=== PATIENT | male | born 1975 | race Caucasian/White ===

== ENCOUNTER 2016-11-25 20:43 | Emergency (ER) | payer BC, MEDICAID ==
--- NOTE | 2016-11-26 04:21 | ER ---
DATE SEEN: 11/25/2016 TIME SEEN: The patient was seen at 2055 hours. HISTORY OF PRESENT ILLNESS: This 41-year-old comes in with a history of complaining of upper body muscle strain. He was playing with his son yesterday and did a pull-up on a pull-up bar and as he did this, he had mild strain in his upper shoulders. No previous history of serious illness, diabetes, heart disease, high blood pressure, or hospitalizations. CURRENT MEDICATIONS: 1. Phentermine. 2. Topiramate. 3. Omeprazole. 4. Atenolol. PAST MEDICAL HISTORY: Hypertension, GERD, and headaches. PAST SURGICAL HISTORY: Lower back surgery. ALLERGIES: Bupropion. PHYSICAL EXAMINATION: VITAL SIGNS: Blood pressure 120/76, heart rate 81, respirations 18, oxygen saturation 97%, temperature is 36.9 degrees centigrade. HEENT: PERRLA intact. Pharynx without abnormality. NECK: Supple. The patient is overweight, has increased abdominal girth. ABDOMEN: Nontender. MUSCULOSKELETAL: Mild tenderness in the pectoral, deltoid, levator scapulae, rhomboids. Mild dysesthesia upper extremities and the shoulder. No hypoesthesia of fingers. 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 He feels like his fingers are slightly swollen. It is difficult for me to tell if th fingers are swollen as they look normal. It is only he who notes the swelling. They look like normal hard working fingers of a man who uses his hands a lot. The patient is 260 pounds. Deep tendon reflexes hypoactive, brachioradialis and biceps. Absent knee jerks, ankle jerks. ASSESSMENT: Strain, upper shoulder muscles. Mild brachial plexus strain induced dysesthesia. He is advised not to work tomorrow and may return to work Saturday if he does not have dysesthesia; otherwise, follow up with doctor on 11/29 and 11/30 if he still has the dysesthesia. Use ibuprofen and Tylenol for pain and discomfort. /[id number] RODNEY/ALEX PEDROZA
== END 2016-11-25 21:15 | disposition home or self-care (01) ==
LOC: FB.ED 20:43
CPT/HCPCS: 99282

== ENCOUNTER 2019-03-02 15:26 | Inpatient (IN) | payer OTHER ==
[2019-03-02] MEDS ORDERED: Sodium Chloride 0.9% 10 ML Syringe FLUSH PRN (16:24)
[2019-03-02] MEDS ORDERED: Aspirin 81 MG Tab.Chew PO ONE (16:29)
[2019-03-02] MEDS: Sodium Chloride 0.9% 1,000 ML IV SCH (16:30)
[2019-03-02] MEDS ORDERED: Nitroglycerin/D5W 25 MG/250 ML BOTTLE IV SCH (16:30)
[2019-03-02] MEDS ORDERED: Ondansetron 4 MG/2 ML SDV IVPUSH ONE (16:52)
[2019-03-02] MEDS ORDERED: Morphine 4 MG/ML Syringe IVPUSH ONE (16:53)
[2019-03-02] MEDS ORDERED: Lisinopril 20 MG Tab PO ONE (17:47)
[2019-03-02] MEDS ORDERED: Lisinopril 20 MG Tab ONE (17:55)
--- NOTE | 2019-03-02 17:59 | EDM.PDOC ---
ED HPI GENERAL MEDICAL PROBLEM - General Chief Complaint: Chest Pain Stated Complaint: CHEST PAIN, DIZZINESS, PAIN IN EXTREMITIES Time Seen by Provider: 03/02/19 16:00 Source of Information: Reports: Patient, Family History Limitations: Reports: No Limitations - History of Present Illness INITIAL COMMENTS - FREE TEXT/NARRATIVE: 43-year-old male with chronic leg pain who reports began having increasing leg pain last night (4-5 PM) and it worsened through last night to today and became associated with central chest pain that was a pressure type pain that did not radiate. He also had some feelings of shortness of breath and he was quite sleepy today. He apparently spent most of the day in bed and seemed hard to awaken at times. The pain in his legs is rated by him as a 7/10 and it is sharp and cramping. Nothing seems to make the pain better. Nothing really seems to make the pain worse. It is over both of his entire lower extremities. The chest pain which is a tightness in his chest began approximately 11 AM today. The pain is a 2/10 and is a pressure type feeling. His symptoms don't really seem to change with activity. He has had intermittent tingling in his left hand associated with this chest pain. He has been able to drink liquids okay. He has not had much of an appetite today. No fevers or chills. He has been urinating well. He does have a history of high blood pressure but has not taken his medications for months. There are no other associated signs or symptoms. There are no other modifying factors. 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 (see below) (Nothing) Bilateral legs & midsternal chest Pain Score (Numeric/FACES): 5 - Related Data Allergies Allergy/AdvReac Type Severity Reaction Status Date / Time bupropion [From Zyban] Allergy Dizziness Verified 03/02/19 15:50 Home Meds: Home Meds Omeprazole 20 mg PO DAILY 01/12/16 [History] Topiramate 25 mg PO BID 11/25/16 [History] Lisinopril 20 mg PO DAILY 03/02/19 [History] Past Medical History Cardiovascular History: Reports: Hypertension Gastrointestinal History: Reports: GERD Genitourinary History: Reports: Renal Calculus Musculoskeletal History: Reports: Arthritis, Back Pain, Chronic Neurological History: Reports: Concussion Psychiatric History: Reports: Anxiety, Depression Endocrine/Metabolic History: Reports: Obesity/BMI 30+ Dermatologic History: Reports: Psoriasis - Infectious Disease History Infectious Disease History: Reports: Chicken Pox - Past Surgical History HEENT Surgical History: Reports: Oral Surgery GI Surgical History: Reports: Cholecystectomy Neurological Surgical History: Reports: Lumbar Spine (2) Other Surgical History Comment: Lipoma removed Social & Family History - Family History Cardiac: Reports: High Cholesterol, Hypertension Respiratory: Reports: None Musculoskeletal: Reports: Arthritis Psychiatric: Reports: PTSD Hematologic: Reports: Anemia Dermatologic: Reports: Psoriasis - Tobacco Use Smoking Status *Q: Current Every Day Smoker Years of Tobacco use: 25 Packs/Tins Daily: 0.8 - Caffeine Use Caffeine Use: Reports: Soda, Tea - Alcohol Use Alcohol Use History: Yes Days Per Week of Alcohol Use: 1 Number of Drinks Per Day: 2 Total Drinks Per Week: 2 - Recreational Drug Use Recreational Drug Use: No - Living Situation & Occupation Occupation: Employed (Works as [employer]) ED ROS GENERAL - Review of Systems Review Of Systems: See Below Constitutional: Reports: No Symptoms HEENT: Reports: No Symptoms Respiratory: Reports: Shortness of Breath (Mild) Cardiovascular: Reports: Chest Pain Endocrine: Reports: Fatigue GI/Abdominal: Reports: Nausea (Mild) : Reports: No Symptoms Musculoskeletal: Reports: Leg Pain (Bilateral as above) Skin: Reports: Rash (Chronic psoriasis) Neurological: Reports: Other (Sleeping more today) Hematologic/Lymphatic: Reports: No Symptoms Immunologic: Reports: No Symptoms ED EXAM, GENERAL - Physical Exam Exam: See Below Exam Limited By: No Limitations General Appearance: Alert, Mild Distress, Obese Eye Exam: Bilateral Eye: EOMI, Normal Inspection, PERRL Ears: Normal External Exam Ear Exam: Bilateral Ear: Auricle Normal Nose: Normal Inspection, Normal Mucosa, No Blood Throat/Mouth: Normal Inspection, Normal Lips, Normal Oropharynx, Normal Voice, No Airway Compromise Head: Atraumatic, Normocephalic Neck: Normal Inspection, Supple, Non-Tender, Full Range of Motion Respiratory/Chest: No Respiratory Distress, Lungs Clear, Normal Breath Sounds, No Accessory Muscle Use, Chest Non-Tender Cardiovascular: Normal Peripheral Pulses, Regular Rate, Rhythm, No JVD Peripheral Pulses: 2+: Radial (L), Radial (R), Dorsalis Pedis (L), Dorsalis Pedis (R) GI/Abdominal: Normal Bowel Sounds, Soft, Non-Tender, No Organomegaly, No Mass, Other (Protuberant) Back Exam: Normal Inspection, Full Range of Motion Extremities: Normal Range of Motion, Non-Tender, No Pedal Edema, Normal Capillary Refill Neurological: Alert, Oriented, CN II-XII Intact, Normal Cognition, No Motor/ Sensory Deficits Psychiatric: Normal Affect Skin Exam: Warm, Dry, Rash (Psoriasis type rash all over) EKG INTERPRETATION EKG Date: 03/02/19 Time: 15:42 Rhythm: NSR Staples: LAD-Left Staples Deviation (Slight) P-Wave: Present QRS: Other (LVH) ST-T: Other (ST-T abnormalities in the lateral and inferior leads) QT: Prolonged (QTC of 463 ms) Comparison: Change From Previous EKG (Compared to EKG performed on 08/22/2015, the lateral and inferior ST changes are new. This could be due to his uncontrolled hypertension or it could be ischemic.) Course - Vital Signs Last Recorded V/S: Last Vital Signs Temp 36.4 C 03/02/19 15:34 Pulse 80 03/02/19 15:34 Resp 18 03/02/19 15:34 BP 178/125 H 03/02/19 15:34 Pulse Ox 96 03/02/19 15:34 - Orders/Labs/Meds Orders: Active Orders 24 hr Category Date Time Status EKG Documentation Completion [RC] ASDIRECTED Care 03/02/19 16:26 Active Chest 1V Frontal [CR] Stat Exams 03/02/19 16:24 Taken UA W/MICROSCOPIC [URIN] Stat Lab 03/02/19 16:24 Ordered Lisinopril [Prinivil] Med 03/03/19 17:47 Once 20 mg PO ONETIME ONE Nitroglycerin/D5W [Nitroglycerin 25 MG/D5W 250 ML] Med 03/02/19 16:30 Active 25 mg in 250 ml IV TITRATE Sodium Chloride 0.9% [Normal Saline] 1,000 ml Med 03/02/19 16:30 Active IV ASDIRECTED Sodium Chloride 0.9% [Saline Flush] Med 03/02/19 16:24 Active 10 ml FLUSH ASDIRECTED PRN Peripheral IV Insertion Adult [OM.PC] Routine Oth 03/02/19 16:24 Ordered EKG 12 Lead [EK] Routine Ther 03/02/19 16:24 Ordered Medication Orders Nitroglycerin/Dextrose (Nitroglycerin 25 Mg/D5w 250 Ml) 25 mg in 250 mls @ 6 mls/hr IV TITRATE SAVITA; Protocol Last Titration: 03/02/19 17:06 Dose: 15 mcg/min, 9 mls/hr Admin: 03/02/19 16:30 Dose: 10 mcg/min, 6 mls/hr Sodium Chloride (Normal Saline) 1,000 mls @ 75 mls/hr IV ASDIRECTED SAVITA Last Admin: 03/02/19 16:30 Dose: 75 mls/hr Lisinopril (Prinivil) 20 mg PO ONETIME ONE Stop: 03/03/19 17:48 Sodium Chloride (Saline Flush) 10 ml FLUSH ASDIRECTED PRN PRN Reason: Keep Vein Open Last Admin: 03/02/19 16:00 Dose: 10 ml Labs: Laboratory Tests 03/02/19 03/02/19 03/02/19 Range/Units 15:51 15:51 15:51 WBC 8.5 (4.5-12.0) X10-3/uL RBC 5.57 (4.30-5.75) x10(6)uL Hgb 17.5 (13.5-17.8) g/dL Hct 50.7 (30.0-51.3) % MCV 91.0 (80-96) fL MCH 31.3 (27.7-33.6) pg MCHC 34.4 (32.2-35.4) g/dL RDW 12.1 (11.5-15.5) % Plt Count 187 (125-369) X10(3)uL MPV 8.0 (7.4-10.4) fL Neut % (Auto) 63.7 (46-82) % Lymph % (Auto) 23.6 (13-37) % [place] % (Auto) 7.9 (4-12) % Eos % (Auto) 4 (1.0-5.0) % Baso % (Auto) 1 (0-2) % Neut # (Auto) 5.4 (1.6-8.3) # Lymph # (Auto) 2.0 (0.6-5.0) # [place] # (Auto) 0.7 (0.0-1.3) # Eos # (Auto) 0.3 (0.0-0.8) # Baso # (Auto) 0.1 (0.0-0.2) # PT 10.1 (8.7-11.1) INR 1.04 (0.89-1.13) APTT 23.6 L (24.4-33.2) SECONDS D-Dimer, Quantitative 0.20 (0.0-0.59) mg/LFEU Sodium 141 (135-145) mmol/L Potassium 3.6 (3.5-5.3) mmol/L Chloride 103 (100-110) mmol/L Carbon Dioxide 29 (21-32) mmol/L BUN 17 (7-18) mg/dL Creatinine 1.2 (0.70-1.30) mg/dL Est Cr Clr Drug Dosing 74.21 mL/min Estimated GFR (MDRD) > 60 (>60) BUN/Creatinine Ratio 14.2 (9-20) Glucose 129 H (80-116) mg/dL Calcium 9.0 (8.6-10.2) mg/dL Magnesium 1.8 (1.8-2.5) mg/dL Total Bilirubin 0.9 (0.1-1.3) mg/dL AST 18 (5-25) IU/L ALT 29 (12-36) U/L Alkaline Phosphatase 63 (56-112) IU/L Troponin I (<0.017-0.056) ng/mL NT-Pro-B Natriuret Pep (<=125) pg/mL Total Protein 7.1 (6.0-8.0) g/dL Albumin 3.8 (3.5-5.2) g/dL Globulin 3.3 g/dL Albumin/Globulin Ratio 1.2 03/02/19 Range/Units 15:51 WBC (4.5-12.0) X10-3/uL RBC (4.30-5.75) x10(6)uL Hgb (13.5-17.8) g/dL Hct (30.0-51.3) % MCV (80-96) fL MCH (27.7-33.6) pg MCHC (32.2-35.4) g/dL RDW (11.5-15.5) % Plt Count (125-369) X10(3)uL MPV (7.4-10.4) fL Neut % (Auto) (46-82) % Lymph % (Auto) (13-37) % [place] % (Auto) (4-12) % Eos % (Auto) (1.0-5.0) % Baso % (Auto) (0-2) % Neut # (Auto) (1.6-8.3) # Lymph # (Auto) (0.6-5.0) # [place] # (Auto) (0.0-1.3) # Eos # (Auto) (0.0-0.8) # Baso # (Auto) (0.0-0.2) # PT (8.7-11.1) INR (0.89-1.13) APTT (24.4-33.2) SECONDS D-Dimer, Quantitative (0.0-0.59) mg/LFEU Sodium (135-145) mmol/L Potassium (3.5-5.3) mmol/L Chloride (100-110) mmol/L Carbon Dioxide (21-32) mmol/L BUN (7-18) mg/dL Creatinine (0.70-1.30) mg/dL Est Cr Clr Drug Dosing mL/min Estimated GFR (MDRD) (>60) BUN/Creatinine Ratio (9-20) Glucose (80-116) mg/dL Calcium (8.6-10.2) mg/dL Magnesium (1.8-2.5) mg/dL Total Bilirubin (0.1-1.3) mg/dL AST (5-25) IU/L ALT (12-36) U/L Alkaline Phosphatase (56-112) IU/L Troponin I < 0.017 L (<0.017-0.056) ng/mL NT-Pro-B Natriuret Pep 262 H (<=125) pg/mL Total Protein (6.0-8.0) g/dL Albumin (3.5-5.2) g/dL Globulin g/dL Albumin/Globulin Ratio Meds: Medications Generic Name Dose Route Start Last Admin Trade Name Freq PRN Reason Stop Dose Admin Nitroglycerin/Dextrose 25 mg in 250 mls @ 6 mls/hr 03/02/19 16:30 03/02/19 17 :06 Nitroglycerin 25 Mg/D5w 250 Ml IV 15 mcg/min TITRATE SAVITA 9 mls/hr Titration Protocol 10 MCG/MIN Sodium Chloride 1,000 mls @ 75 mls/hr 03/02/19 16:30 03/02/19 16:30 Normal Saline IV 75 mls/hr ASDIRECTED SAVITA Administration Lisinopril 20 mg 03/03/19 17:47 Prinivil PO 03/03/19 17:48 ONETIME ONE Sodium Chloride 10 ml 03/02/19 16:24 03/02/19 16:00 Saline Flush FLUSH 10 ml ASDIRECTED PRN Administration Keep Vein Open Discontinued Medications Generic Name Dose Route Start Last Admin Trade Name Freq PRN Reason Stop Dose Admin Aspirin 324 mg 03/02/19 16:29 03/02/19 15:58 Aspirin PO 03/02/19 16:30 324 mg ONETIME ONE Administration Morphine Sulfate 4 mg 03/02/19 16:53 03/02/19 17:04 Morphine IVPUSH 03/02/19 16:54 4 mg ONETIME ONE Administration Morphine Sulfate Confirm 03/02/19 16:56 03/02/19 17:05 Morphine Administered 03/02/19 16:57 Not Given Dose 4 mg .ROUTE .STK-MED ONE Ondansetron HCl 4 mg 03/02/19 16:52 03/02/19 17:02 Zofran IVPUSH 03/02/19 16:53 4 mg ONETIME ONE Administration - Radiology Interpretation Free Text/Narrative:: Portable chest x-ray shows no acute disease. - Re-Assessments/Exams Free Text/Narrative Re-Assessment/Exam: 03/02/19 17:10: IV nitroglycerin drip has been started and his blood pressure is coming down. Chest pain has resolved and his leg pain is resolved as well with this nitroglycerin drip and control of his blood pressure. In addition he developed a headache and that was controlled with morphine IV. His initial troponin was normal. His chemistries, BUN/creatinine and hemoglobin are all normal. His d-dimer was normal as well. Chest x-ray showed no evidence of failure. The patient has hypertensive urgency which has responded nicely to the nitroglycerin drip. I will be giving the patient a dose of his blood pressure medicine that he was supposed to be taking (lisinopril 20 mg). And he will be admitted to the intensive care unit for control of his blood pressure, careful monitoring and serial troponins. I discussed this with the patient and with his significant other and they are in agreement with the plans for admission. Departure - Departure Time of Disposition: 17:50 Disposition: Admitted As Inpatient 66 Condition: Fair (Guarded) Clinical Impression: Hypertensive urgency Chest pain Qualifiers: Chest pain type: unspecified Qualified Code(s): R07.9 - Chest pain, unspecified Referrals: Dell Spivey MD [Primary Care Provider] - - My Orders Last 24 Hours: My Active Orders 03/02/19 16:24 Chest 1V Frontal [CR] Stat UA W/MICROSCOPIC [URIN] Stat Sodium Chloride 0.9% [Saline Flush] 10 ml FLUSH ASDIRECTED PRN Peripheral IV Insertion Adult [OM.PC] Routine EKG 12 Lead [EK] Routine 03/02/19 16:26 EKG Documentation Completion [RC] ASDIRECTED 03/02/19 16:30 Nitroglycerin/D5W [Nitroglycerin 25 MG/D5W 250 ML] 25 mg in 250 ml IV TITRATE Sodium Chloride 0.9% [Normal Saline] 1,000 ml IV ASDIRECTED 03/03/19 17:47 Lisinopril [Prinivil] 20 mg PO ONETIME ONE - Assessment/Plan Last 24 Hours: My Active Orders 03/02/19 16:24 Chest 1V Frontal [CR] Stat UA W/MICROSCOPIC [URIN] Stat Sodium Chloride 0.9% [Saline Flush] 10 ml FLUSH ASDIRECTED PRN Peripheral IV Insertion Adult [OM.PC] Routine EKG 12 Lead [EK] Routine 03/02/19 16:26 EKG Documentation Completion [RC] ASDIRECTED 03/02/19 16:30 Nitroglycerin/D5W [Nitroglycerin 25 MG/D5W 250 ML] 25 mg in 250 ml IV TITRATE Sodium Chloride 0.9% [Normal Saline] 1,000 ml IV ASDIRECTED 03/03/19 17:47 Lisinopril [Prinivil] 20 mg PO ONETIME ONE
[2019-03-02] MEDS ORDERED: Acetaminophen 325 MG Tab PO PRN (18:24)
[2019-03-02] MEDS ORDERED: Ondansetron 4 MG/2 ML SDV IVPUSH PRN (18:29)
[2019-03-02] MEDS ORDERED: Morphine 2 MG/ML Syringe IVPUSH PRN (18:29)
[2019-03-03] MEDS: Sodium Chloride 0.9% 1,000 ML IV SCH (05:40)
--- NOTE | 2019-03-03 07:46 | PCM.HP ---
H&P History of Present Illness - General Date of Service: 03/03/19 Admit Problem/Dx: Admission Diagnosis/Problem Admission Diagnosis/Problem Hypertensive urgency Source of Information: Patient History Limitations: Reports: No Limitations - History of Present Illness Initial Comments - Free Text/Narative: This is a 43-year-old male patient yesterday started having some leg pain. Later he started having some chest pain did not radiate anywhere had some tingling in his left hand. He wasn't feeling well so he came to the ER. His blood pressure was very high. So was admitted on nitroglycerin drip to keep his blood pressure down. Patient states he's been on lisinopril for his blood pressure but hasn't been taking for several months. He said when he got over here all the symptoms went away. He has no history of coronary artery disease or family history. He has history of smoking, hypertension. He says cholesterol and diabetes are negative. Says he had a stress test about 3 years ago that was negative. Right now is asymptomatic. Bilateral legs & midsternal chest Pain Score (Numeric/FACES): 5 Headache Pain Score (Numeric/FACES): 0 - Related Data Allergies/Adverse Reactions: Allergies Allergy/AdvReac Type Severity Reaction Status Date / Time bupropion [From Zyban] Allergy Dizziness Verified 03/02/19 15:50 Home Medications: Home Meds Omeprazole 20 mg PO DAILY 01/12/16 [History] Topiramate 25 mg PO BID 11/25/16 [History] Lisinopril 20 mg PO DAILY 03/02/19 [History] Past Medical History HEENT History: Reports: Other (See Below) Other HEENT History: Sinus irritation. Cardiovascular History: Reports: Hypertension Gastrointestinal History: Reports: GERD Genitourinary History: Reports: Renal Calculus Musculoskeletal History: Reports: Arthritis, Back Pain, Chronic Neurological History: Reports: Concussion Psychiatric History: Reports: Anxiety, Depression Endocrine/Metabolic History: Reports: Obesity/BMI 30+ Dermatologic History: Reports: Psoriasis - Infectious Disease History Infectious Disease History: Reports: Chicken Pox - Past Surgical History HEENT Surgical History: Reports: Oral Surgery GI Surgical History: Reports: Cholecystectomy Neurological Surgical History: Reports: Lumbar Spine (2) Other Surgical History Comment: Lipoma removed Social & Family History - Family History Family Medical History: Noncontributory Cardiac: Reports: High Cholesterol, Hypertension Respiratory: Reports: None Musculoskeletal: Reports: Arthritis Psychiatric: Reports: PTSD Hematologic: Reports: Anemia Dermatologic: Reports: Psoriasis - Tobacco Use Smoking Status *Q: Current Every Day Smoker Years of Tobacco use: 25 Packs/Tins Daily: 0.8 - Caffeine Use Caffeine Use: Reports: Soda, Tea - Alcohol Use Days Per Week of Alcohol Use: 1 Number of Drinks Per Day: 2 Total Drinks Per Week: 2 - Recreational Drug Use Recreational Drug Use: No - Living Situation & Occupation Occupation: Employed (Works as [employer]) H&P Review of Systems - Review of Systems: Review Of Systems: See Below General: Reports: No Symptoms HEENT: Reports: No Symptoms Pulmonary: Denies: Shortness of Breath, Cough, Sputum Cardiovascular: Reports: Chest Pain Gastrointestinal: Reports: No Symptoms Genitourinary: Reports: No Symptoms Musculoskeletal: Reports: Other (Bilateral leg pain) Skin: Reports: No Symptoms Psychiatric: Reports: No Symptoms Neurological: Reports: No Symptoms Hematologic/Lymphatic: Reports: No Symptoms Immunologic: Reports: No Symptoms Exam - Exam Exam: See Below - Vital Signs Vital Signs: Last Vital Signs Temp 97.6 F 03/03/19 04:55 Pulse 76 03/03/19 05:47 Resp 18 03/03/19 05:47 BP 120/77 03/03/19 05:47 Pulse Ox 96 03/03/19 05:47 Weight: 265 lb 11.2 oz - Exam General: Alert, Oriented, Cooperative HEENT: PERRLA, Hearing Intact, Posterior Pharynx Clear, Pupils Reactive Neck: Supple, Trachea Midline. No: Lymphadenopathy Lungs: Clear to Auscultation, Normal Respiratory Effort Cardiovascular: Regular Rate, Regular Rhythm. No: Normal S1, Normal S2, Tachycardia, Systolic Murmur GI/Abdominal Exam: Normal Bowel Sounds, Soft, Non-Tender, No Organomegaly, No Distention, No Abnormal Bruit Back Exam: Normal Inspection, Full Range of Motion Extremities: Normal Inspection, Non-Tender, No Pedal Edema Skin: Warm, Dry, Intact Neurological: Normal Gait, Normal Speech Neuro Extensive - Mental Status: Alert, Oriented x3, Normal Mood/Affect, Normal Cognition, Memory Intact Neuro Extensive - Motor, Sensory, Reflexes: Normal Gait Psychiatric: Alert, Normal Affect, Normal Mood - Patient Data Lab Results Last 24 hrs: Laboratory Results - last 24 hr 03/02/19 03/02/19 03/02/19 Range/Units 15:51 15:51 15:51 WBC 8.5 (4.5-12.0) X10-3/uL RBC 5.57 (4.30-5.75) x10(6)uL Hgb 17.5 (13.5-17.8) g/dL Hct 50.7 (30.0-51.3) % MCV 91.0 (80-96) fL MCH 31.3 (27.7-33.6) pg MCHC 34.4 (32.2-35.4) g/dL RDW 12.1 (11.5-15.5) % Plt Count 187 (125-369) X10(3)uL MPV 8.0 (7.4-10.4) fL Neut % (Auto) 63.7 (46-82) % Lymph % (Auto) 23.6 (13-37) % [place] % (Auto) 7.9 (4-12) % Eos % (Auto) 4 (1.0-5.0) % Baso % (Auto) 1 (0-2) % Neut # (Auto) 5.4 (1.6-8.3) # Lymph # (Auto) 2.0 (0.6-5.0) # [place] # (Auto) 0.7 (0.0-1.3) # Eos # (Auto) 0.3 (0.0-0.8) # Baso # (Auto) 0.1 (0.0-0.2) # PT 10.1 (8.7-11.1) INR 1.04 (0.89-1.13) APTT 23.6 L (24.4-33.2) SECONDS D-Dimer, Quantitative 0.20 (0.0-0.59) mg/LFEU Sodium 141 (135-145) mmol/L Potassium 3.6 (3.5-5.3) mmol/L Chloride 103 (100-110) mmol/L Carbon Dioxide 29 (21-32) mmol/L BUN 17 (7-18) mg/dL Creatinine 1.2 (0.70-1.30) mg/dL Est Cr Clr Drug Dosing 74.21 mL/min Estimated GFR (MDRD) > 60 (>60) BUN/Creatinine Ratio 14.2 (9-20) Glucose 129 H (80-116) mg/dL Calcium 9.0 (8.6-10.2) mg/dL Magnesium 1.8 (1.8-2.5) mg/dL Total Bilirubin 0.9 (0.1-1.3) mg/dL AST 18 (5-25) IU/L ALT 29 (12-36) U/L Alkaline Phosphatase 63 (56-112) IU/L Troponin I (<0.017-0.056) ng/mL NT-Pro-B Natriuret Pep (<=125) pg/mL Total Protein 7.1 (6.0-8.0) g/dL Albumin 3.8 (3.5-5.2) g/dL Globulin 3.3 g/dL Albumin/Globulin Ratio 1.2 Urine Color (YELLOW) Urine Appearance (CLEAR) Urine pH (5.0-6.5) Ur Specific [place] (1.010-1.025) Urine Protein (NEGATIVE) mg/dL Urine Glucose (UA) (NORMAL) mg/dL Urine Ketones (NEGATIVE) mg/dL Urine Occult Blood (NEGATIVE) Urine Nitrite (NEGATIVE) Urine Bilirubin (NEGATIVE) Urine Urobilinogen (NEGATIVE) mg/dL Ur Leukocyte Esterase (NEGATIVE) Urine RBC (0-5) Urine WBC (0-5) Ur Squamous Epith Cells (NS,R,O) Urine Bacteria (NS) 03/02/19 03/02/19 03/02/19 Range/Units 15:51 20:00 23:00 WBC (4.5-12.0) X10-3/uL RBC (4.30-5.75) x10(6)uL Hgb (13.5-17.8) g/dL Hct (30.0-51.3) % MCV (80-96) fL MCH (27.7-33.6) pg MCHC (32.2-35.4) g/dL RDW (11.5-15.5) % Plt Count (125-369) X10(3)uL MPV (7.4-10.4) fL Neut % (Auto) (46-82) % Lymph % (Auto) (13-37) % [place] % (Auto) (4-12) % Eos % (Auto) (1.0-5.0) % Baso % (Auto) (0-2) % Neut # (Auto) (1.6-8.3) # Lymph # (Auto) (0.6-5.0) # [place] # (Auto) (0.0-1.3) # Eos # (Auto) (0.0-0.8) # Baso # (Auto) (0.0-0.2) # PT (8.7-11.1) INR (0.89-1.13) APTT (24.4-33.2) SECONDS D-Dimer, Quantitative (0.0-0.59) mg/LFEU Sodium (135-145) mmol/L Potassium (3.5-5.3) mmol/L Chloride (100-110) mmol/L Carbon Dioxide (21-32) mmol/L BUN (7-18) mg/dL Creatinine (0.70-1.30) mg/dL Est Cr Clr Drug Dosing mL/min Estimated GFR (MDRD) (>60) BUN/Creatinine Ratio (9-20) Glucose (80-116) mg/dL Calcium (8.6-10.2) mg/dL Magnesium (1.8-2.5) mg/dL Total Bilirubin (0.1-1.3) mg/dL AST (5-25) IU/L ALT (12-36) U/L Alkaline Phosphatase (56-112) IU/L Troponin I < 0.017 L < 0.017 L (<0.017-0.056) ng/mL NT-Pro-B Natriuret Pep 262 H (<=125) pg/mL Total Protein (6.0-8.0) g/dL Albumin (3.5-5.2) g/dL Globulin g/dL Albumin/Globulin Ratio Urine Color Yellow (YELLOW) Urine Appearance Clear (CLEAR) Urine pH 5.0 (5.0-6.5) Ur Specific [place] 1.025 (1.010-1.025) Urine Protein Negative (NEGATIVE) mg/dL Urine Glucose (UA) Normal (NORMAL) mg/dL Urine Ketones Negative (NEGATIVE) mg/dL Urine Occult Blood Moderate H (NEGATIVE) Urine Nitrite Negative (NEGATIVE) Urine Bilirubin Small H (NEGATIVE) Urine Urobilinogen Normal (NEGATIVE) mg/dL Ur Leukocyte Esterase Negative (NEGATIVE) Urine RBC 0-5 (0-5) Urine WBC 0-5 (0-5) Ur Squamous Epith Cells Few H (NS,R,O) Urine Bacteria Few H (NS) 03/03/19 03/03/19 03/03/19 Range/Units 06:15 06:15 06:15 WBC 9.8 (4.5-12.0) X10-3/uL RBC 5.17 (4.30-5.75) x10(6)uL Hgb 16.0 (13.5-17.8) g/dL Hct 47.2 (30.0-51.3) % MCV 91.3 (80-96) fL MCH 31.0 (27.7-33.6) pg MCHC 33.9 (32.2-35.4) g/dL RDW 12.3 (11.5-15.5) % Plt Count 184 (125-369) X10(3)uL MPV 7.6 (7.4-10.4) fL Neut % (Auto) 63.2 (46-82) % Lymph % (Auto) 25.1 (13-37) % [place] % (Auto) 7.1 (4-12) % Eos % (Auto) 4 (1.0-5.0) % Baso % (Auto) 1 (0-2) % Neut # (Auto) 6.1 (1.6-8.3) # Lymph # (Auto) 2.5 (0.6-5.0) # [place] # (Auto) 0.7 (0.0-1.3) # Eos # (Auto) 0.4 (0.0-0.8) # Baso # (Auto) 0.1 (0.0-0.2) # PT (8.7-11.1) INR (0.89-1.13) APTT (24.4-33.2) SECONDS D-Dimer, Quantitative (0.0-0.59) mg/LFEU Sodium 142 (135-145) mmol/L Potassium 3.6 (3.5-5.3) mmol/L Chloride 105 (100-110) mmol/L Carbon Dioxide 29 (21-32) mmol/L BUN 20 H (7-18) mg/dL Creatinine 1.2 (0.70-1.30) mg/dL Est Cr Clr Drug Dosing 74.21 mL/min Estimated GFR (MDRD) > 60 (>60) BUN/Creatinine Ratio 16.7 (9-20) Glucose 114 (80-116) mg/dL Calcium 8.4 L (8.6-10.2) mg/dL Magnesium (1.8-2.5) mg/dL Total Bilirubin (0.1-1.3) mg/dL AST (5-25) IU/L ALT (12-36) U/L Alkaline Phosphatase (56-112) IU/L Troponin I < 0.017 L (<0.017-0.056) ng/mL NT-Pro-B Natriuret Pep (<=125) pg/mL Total Protein (6.0-8.0) g/dL Albumin (3.5-5.2) g/dL Globulin g/dL Albumin/Globulin Ratio Urine Color (YELLOW) Urine Appearance (CLEAR) Urine pH (5.0-6.5) Ur Specific [place] (1.010-1.025) Urine Protein (NEGATIVE) mg/dL Urine Glucose (UA) (NORMAL) mg/dL Urine Ketones (NEGATIVE) mg/dL Urine Occult Blood (NEGATIVE) Urine Nitrite (NEGATIVE) Urine Bilirubin (NEGATIVE) Urine Urobilinogen (NEGATIVE) mg/dL Ur Leukocyte Esterase (NEGATIVE) Urine RBC (0-5) Urine WBC (0-5) Ur Squamous Epith Cells (NS,R,O) Urine Bacteria (NS) Result Diagrams: 03/03/19 06:15 03/03/19 06:15 - Problem List (1) Chest pain SNOMED Code(s): 17890532 ICD Code: R07.9 - CHEST PAIN, UNSPECIFIED Status: Acute Current Visit: Yes Qualifiers: Chest pain type: unspecified Qualified Code(s): R07.9 - Chest pain, unspecified (2) Hypertensive urgency SNOMED Code(s): 301666319 ICD Code: I16.0 - HYPERTENSIVE URGENCY Status: Acute Current Visit: Yes Problem List Initiated/Reviewed/Updated: Yes Orders Last 24hrs: Active Orders 24 hr Category Date Time Status Admission Status [Patient Status] [ADT] Routine ADT 03/02/19 18:15 Active Antiembolic Devices [RC] .Routine Care 03/02/19 18:24 Active Communication Order [RC] .Nitro Drip Care 03/02/19 18:33 Active EKG Documentation Completion [RC] .03/03@ Care 03/02/19 16:26 Active Height and Weight [RC] 06 Care 03/02/19 18:24 Active Intake and Output [RC] 06,14,22 Care 03/02/19 18:25 Active Up With Assistance [RC] ASDIRECTED Care 03/02/19 18:24 Active VTE/DVT Education [RC] Click to Edit Care 03/02/19 18:24 Active Vital Signs [RC] Q2H Care 03/02/19 18:24 Active Heart Healthy Diet [DIET] Diet 03/02/19 Dinner Active Chest 1V Frontal [CR] Stat Exams 03/02/19 16:24 Taken Acetaminophen [Tylenol] Med 03/02/19 18:24 Active 650 mg PO Q4H PRN Aspirin Med 03/03/19 09:00 Active 162 mg PO DAILY Lisinopril [Prinivil] Med 03/03/19 09:00 Active 20 mg PO DAILY Morphine Med 03/02/19 18:29 Active 2 mg IVPUSH Q1H PRN Nitroglycerin/D5W [Nitroglycerin 25 MG/D5W 250 ML] Med 03/02/19 16:30 Active 25 mg in 250 ml IV TITRATE Ondansetron [Zofran] Med 03/02/19 18:29 Active 4 mg IVPUSH Q6H PRN Sodium Chloride 0.9% [Normal Saline] 1,000 ml Med 03/02/19 16:30 Active IV ASDIRECTED Sodium Chloride 0.9% [Saline Flush] Med 03/02/19 16:24 Active 10 ml FLUSH ASDIRECTED PRN DVT/VTE Prophylaxis Reflex [OM.PC] Per Unit Routine Oth 03/02/19 18:24 Ordered Peripheral IV Insertion Adult [OM.PC] Routine Oth 03/02/19 16:24 Ordered Resuscitation Status Routine Resus Stat 03/02/19 18:24 Ordered EKG 12 Lead [EK] Routine Ther 03/02/19 16:24 Ordered EKG 12 Lead [EK] Routine Ther 03/03/19 07:00 Ordered Medication Orders Acetaminophen (Tylenol) 650 mg PO Q4H PRN PRN Reason: analgesia/fever/pain Last Admin: 03/02/19 20:22 Dose: 650 mg Aspirin (Aspirin) 162 mg PO DAILY COUNTS INCLUDE 234 BEDS AT THE [facility] Nitroglycerin/Dextrose (Nitroglycerin 25 Mg/D5w 250 Ml) 25 mg in 250 mls @ 6 mls/hr IV TITRATE SAVITA; Protocol Last Titration: 03/02/19 22:00 Dose: 0 mcg/min, 0 mls/hr Titration: 03/02/19 21:20 Dose: 5 mcg/min, 3 mls/hr Titration: 03/02/19 21:05 Dose: 10 mcg/min, 6 mls/hr Titration: 03/02/19 20:39 Dose: 15 mcg/min, 9 mls/hr Titration: 03/02/19 18:55 Dose: 20 mcg/min, 12 mls/hr Titration: 03/02/19 18:40 Dose: 15 mcg/min, 9 mls/hr Titration: 03/02/19 17:40 Dose: 20 mcg/min, 12 mls/hr Titration: 03/02/19 17:06 Dose: 15 mcg/min, 9 mls/hr Admin: 03/02/19 16:30 Dose: 10 mcg/min, 6 mls/hr Sodium Chloride (Normal Saline) 1,000 mls @ 75 mls/hr IV ASDIRECTED SAVITA Last Admin: 03/03/19 05:40 Dose: 75 mls/hr Infusion: 03/03/19 05:40 Dose: 75 mls/hr Admin: 03/02/19 16:30 Dose: 75 mls/hr Lisinopril (Prinivil) 20 mg PO DAILY COUNTS INCLUDE 234 BEDS AT THE [facility] Morphine Sulfate (Morphine) 2 mg IVPUSH Q1H PRN PRN Reason: Moderate to severe pain Ondansetron HCl (Zofran) 4 mg IVPUSH Q6H PRN PRN Reason: Nausea/Vomiting Sodium Chloride (Saline Flush) 10 ml FLUSH ASDIRECTED PRN PRN Reason: Keep Vein Open Last Admin: 03/02/19 16:00 Dose: 10 ml Assessment/Plan Comment:: 1. Admit to the ICU on a nitro drip. 2. Restart fosinopril 20 mg daily normally takes at home. 3. Cardiac diet. 4. Up ad temo. 5. Repeat labs, troponin and EKG in a.m. 6. Full code 7. VTE of laxatives not address last night. It will not be started because the patients will be discharge.
--- NOTE | 2019-03-03 07:53 | PCM.DCSUM1 ---
Discharge Summary - Hospital Course Free Text/Narrative:: Hospital course-patient was admitted to the ICU. First EKG and troponin did not show any signs of heart damage. He was put on a nitroglycerin drip and his blood pressure came down nicely. Started as lisinopril 20 mg a day. They were able to slowly wean off the nitroglycerin drip and his blood pressure remained normal. The next morning he had another troponin and EKG that showed no elevated troponin and EKG showed some LVH with no significant ST abnormalities. Overnight the patient had apneic spells and his oxygen dropped 80%. He told the nurses then me that his 's been trying to get him to do a sleep study because she thinks he most likely has sleep apnea. He had one set up at the [facility] has not done it. Patient has not been taken any of his pills. Tomorrow for a weight loss and the lisinopril for blood pressure. Patient is medically stable this morning. So we'll discharge to home. We'll have [facility] to oxygen desaturation study for nocturnal O2. Set up a stress test in the clinic even he had one 3 years ago. Set up a sleep study to rule out sleep apnea. And continue his lisinopril 20 mg a day. Brief History: This is a 43-year-old male patient yesterday started having some leg pain. Later he started having some chest pain did not radiate anywhere had some tingling in his left hand. He wasn't feeling well so he came to the ER. His blood pressure was very high. So was admitted on nitroglycerin drip to keep his blood pressure down. Patient states he's been on lisinopril for his blood pressure but hasn't been taking for several months. He said when he got over here all the symptoms went away. He has no history of coronary artery disease or family history. He has history of smoking, hypertension. He says cholesterol and diabetes are negative. Says he had a stress test about 3 years ago that was negative. Right now is asymptomatic. Diagnosis: Stroke: No - Discharge Data Discharge Date: 03/03/19 Discharge Disposition: Home, Self-Care 01 Condition: Good - Discharge Diagnosis/Problem(s) (1) Chest pain SNOMED Code(s): 07367598 ICD Code: R07.9 - CHEST PAIN, UNSPECIFIED Status: Acute Current Visit: Yes Qualifiers: Chest pain type: unspecified Qualified Code(s): R07.9 - Chest pain, unspecified (2) Hypertensive urgency SNOMED Code(s): 168010051 ICD Code: I16.0 - HYPERTENSIVE URGENCY Status: Acute Current Visit: Yes (3) Sleep apnea SNOMED Code(s): 04627691 ICD Code: G47.30 - SLEEP APNEA, UNSPECIFIED Status: Acute Current Visit: Yes (4) Nocturnal hypoxia SNOMED Code(s): 015957453 ICD Code: G47.34 - IDIO SLEEP RELATED NONOBSTRUCTIVE ALVEOLAR HYPOVENTILATION Status: Acute Current Visit: Yes - Patient Instructions Diet: Heart Healthy Diet Activity: As Tolerated Driving: May Drive Today Showering/Bathing: May Shower Other/Special Instructions: 1. Recheck with Dr. Chandler in 1 week. 2. Set up stress test at [facility]. 3. Set up sleep study to rule in or out sleep apnea. 4. [facility] to do desaturation studies for nocturnal O2. - Discharge Plan Home Medications: Home Meds Lisinopril 20 mg PO DAILY 03/02/19 [History] Aspirin 162 mg PO DAILY tab.chew 03/03/19 [Rx] Lisinopril [Prinivil] 20 mg PO DAILY tablet 03/03/19 [Rx] Patient Handouts: Restless Legs Syndrome, Venous Thromboembolism Prevention, Hypertension Forms: ED Department Discharge Referrals: Dell Spivey MD [Primary Care Provider] - - Discharge Summary/Plan Comment DC Time >30 min.: No - Patient Data Vitals - Most Recent: Last Vital Signs Temp 97.6 F 03/03/19 04:55 Pulse 76 03/03/19 05:47 Resp 18 03/03/19 05:47 BP 120/77 03/03/19 05:47 Pulse Ox 96 03/03/19 05:47 Weight - Most Recent: 265 lb 11.2 oz I&O - Last 24 hours: Intake & Output 03/02/19 03/03/19 03/03/19 22:59 06:59 14:59 Intake Total 793 950 Output Total 225 Balance 568 950 Lab Results - Last 24 hrs: Laboratory Results - last 24 hr 03/02/19 03/02/19 03/02/19 Range/Units 15:51 15:51 15:51 WBC 8.5 (4.5-12.0) X10-3/uL RBC 5.57 (4.30-5.75) x10(6)uL Hgb 17.5 (13.5-17.8) g/dL Hct 50.7 (30.0-51.3) % MCV 91.0 (80-96) fL MCH 31.3 (27.7-33.6) pg MCHC 34.4 (32.2-35.4) g/dL RDW 12.1 (11.5-15.5) % Plt Count 187 (125-369) X10(3)uL MPV 8.0 (7.4-10.4) fL Neut % (Auto) 63.7 (46-82) % Lymph % (Auto) 23.6 (13-37) % [place] % (Auto) 7.9 (4-12) % Eos % (Auto) 4 (1.0-5.0) % Baso % (Auto) 1 (0-2) % Neut # (Auto) 5.4 (1.6-8.3) # Lymph # (Auto) 2.0 (0.6-5.0) # [place] # (Auto) 0.7 (0.0-1.3) # Eos # (Auto) 0.3 (0.0-0.8) # Baso # (Auto) 0.1 (0.0-0.2) # PT 10.1 (8.7-11.1) INR 1.04 (0.89-1.13) APTT 23.6 L (24.4-33.2) SECONDS D-Dimer, Quantitative 0.20 (0.0-0.59) mg/LFEU Sodium 141 (135-145) mmol/L Potassium 3.6 (3.5-5.3) mmol/L Chloride 103 (100-110) mmol/L Carbon Dioxide 29 (21-32) mmol/L BUN 17 (7-18) mg/dL Creatinine 1.2 (0.70-1.30) mg/dL Est Cr Clr Drug Dosing 74.21 mL/min Estimated GFR (MDRD) > 60 (>60) BUN/Creatinine Ratio 14.2 (9-20) Glucose 129 H (80-116) mg/dL Calcium 9.0 (8.6-10.2) mg/dL Magnesium 1.8 (1.8-2.5) mg/dL Total Bilirubin 0.9 (0.1-1.3) mg/dL AST 18 (5-25) IU/L ALT 29 (12-36) U/L Alkaline Phosphatase 63 (56-112) IU/L Troponin I (<0.017-0.056) ng/mL NT-Pro-B Natriuret Pep (<=125) pg/mL Total Protein 7.1 (6.0-8.0) g/dL Albumin 3.8 (3.5-5.2) g/dL Globulin 3.3 g/dL Albumin/Globulin Ratio 1.2 Urine Color (YELLOW) Urine Appearance (CLEAR) Urine pH (5.0-6.5) Ur Specific [place] (1.010-1.025) Urine Protein (NEGATIVE) mg/dL Urine Glucose (UA) (NORMAL) mg/dL Urine Ketones (NEGATIVE) mg/dL Urine Occult Blood (NEGATIVE) Urine Nitrite (NEGATIVE) Urine Bilirubin (NEGATIVE) Urine Urobilinogen (NEGATIVE) mg/dL Ur Leukocyte Esterase (NEGATIVE) Urine RBC (0-5) Urine WBC (0-5) Ur Squamous Epith Cells (NS,R,O) Urine Bacteria (NS) 03/02/19 03/02/19 03/02/19 Range/Units 15:51 20:00 23:00 WBC (4.5-12.0) X10-3/uL RBC (4.30-5.75) x10(6)uL Hgb (13.5-17.8) g/dL Hct (30.0-51.3) % MCV (80-96) fL MCH (27.7-33.6) pg MCHC (32.2-35.4) g/dL RDW (11.5-15.5) % Plt Count (125-369) X10(3)uL MPV (7.4-10.4) fL Neut % (Auto) (46-82) % Lymph % (Auto) (13-37) % [place] % (Auto) (4-12) % Eos % (Auto) (1.0-5.0) % Baso % (Auto) (0-2) % Neut # (Auto) (1.6-8.3) # Lymph # (Auto) (0.6-5.0) # [place] # (Auto) (0.0-1.3) # Eos # (Auto) (0.0-0.8) # Baso # (Auto) (0.0-0.2) # PT (8.7-11.1) INR (0.89-1.13) APTT (24.4-33.2) SECONDS D-Dimer, Quantitative (0.0-0.59) mg/LFEU Sodium (135-145) mmol/L Potassium (3.5-5.3) mmol/L Chloride (100-110) mmol/L Carbon Dioxide (21-32) mmol/L BUN (7-18) mg/dL Creatinine (0.70-1.30) mg/dL Est Cr Clr Drug Dosing mL/min Estimated GFR (MDRD) (>60) BUN/Creatinine Ratio (9-20) Glucose (80-116) mg/dL Calcium (8.6-10.2) mg/dL Magnesium (1.8-2.5) mg/dL Total Bilirubin (0.1-1.3) mg/dL AST (5-25) IU/L ALT (12-36) U/L Alkaline Phosphatase (56-112) IU/L Troponin I < 0.017 L < 0.017 L (<0.017-0.056) ng/mL NT-Pro-B Natriuret Pep 262 H (<=125) pg/mL Total Protein (6.0-8.0) g/dL Albumin (3.5-5.2) g/dL Globulin g/dL Albumin/Globulin Ratio Urine Color Yellow (YELLOW) Urine Appearance Clear (CLEAR) Urine pH 5.0 (5.0-6.5) Ur Specific [place] 1.025 (1.010-1.025) Urine Protein Negative (NEGATIVE) mg/dL Urine Glucose (UA) Normal (NORMAL) mg/dL Urine Ketones Negative (NEGATIVE) mg/dL Urine Occult Blood Moderate H (NEGATIVE) Urine Nitrite Negative (NEGATIVE) Urine Bilirubin Small H (NEGATIVE) Urine Urobilinogen Normal (NEGATIVE) mg/dL Ur Leukocyte Esterase Negative (NEGATIVE) Urine RBC 0-5 (0-5) Urine WBC 0-5 (0-5) Ur Squamous Epith Cells Few H (NS,R,O) Urine Bacteria Few H (NS) 03/03/19 03/03/19 03/03/19 Range/Units 06:15 06:15 06:15 WBC 9.8 (4.5-12.0) X10-3/uL RBC 5.17 (4.30-5.75) x10(6)uL Hgb 16.0 (13.5-17.8) g/dL Hct 47.2 (30.0-51.3) % MCV 91.3 (80-96) fL MCH 31.0 (27.7-33.6) pg MCHC 33.9 (32.2-35.4) g/dL RDW 12.3 (11.5-15.5) % Plt Count 184 (125-369) X10(3)uL MPV 7.6 (7.4-10.4) fL Neut % (Auto) 63.2 (46-82) % Lymph % (Auto) 25.1 (13-37) % [place] % (Auto) 7.1 (4-12) % Eos % (Auto) 4 (1.0-5.0) % Baso % (Auto) 1 (0-2) % Neut # (Auto) 6.1 (1.6-8.3) # Lymph # (Auto) 2.5 (0.6-5.0) # [place] # (Auto) 0.7 (0.0-1.3) # Eos # (Auto) 0.4 (0.0-0.8) # Baso # (Auto) 0.1 (0.0-0.2) # PT (8.7-11.1) INR (0.89-1.13) APTT (24.4-33.2) SECONDS D-Dimer, Quantitative (0.0-0.59) mg/LFEU Sodium 142 (135-145) mmol/L Potassium 3.6 (3.5-5.3) mmol/L Chloride 105 (100-110) mmol/L Carbon Dioxide 29 (21-32) mmol/L BUN 20 H (7-18) mg/dL Creatinine 1.2 (0.70-1.30) mg/dL Est Cr Clr Drug Dosing 74.21 mL/min Estimated GFR (MDRD) > 60 (>60) BUN/Creatinine Ratio 16.7 (9-20) Glucose 114 (80-116) mg/dL Calcium 8.4 L (8.6-10.2) mg/dL Magnesium (1.8-2.5) mg/dL Total Bilirubin (0.1-1.3) mg/dL AST (5-25) IU/L ALT (12-36) U/L Alkaline Phosphatase (56-112) IU/L Troponin I < 0.017 L (<0.017-0.056) ng/mL NT-Pro-B Natriuret Pep (<=125) pg/mL Total Protein (6.0-8.0) g/dL Albumin (3.5-5.2) g/dL Globulin g/dL Albumin/Globulin Ratio Urine Color (YELLOW) Urine Appearance (CLEAR) Urine pH (5.0-6.5) Ur Specific [place] (1.010-1.025) Urine Protein (NEGATIVE) mg/dL Urine Glucose (UA) (NORMAL) mg/dL Urine Ketones (NEGATIVE) mg/dL Urine Occult Blood (NEGATIVE) Urine Nitrite (NEGATIVE) Urine Bilirubin (NEGATIVE) Urine Urobilinogen (NEGATIVE) mg/dL Ur Leukocyte Esterase (NEGATIVE) Urine RBC (0-5) Urine WBC (0-5) Ur Squamous Epith Cells (NS,R,O) Urine Bacteria (NS) Med Orders - Current: Current Medications Acetaminophen (Tylenol) 650 mg PO Q4H PRN PRN Reason: analgesia/fever/pain Last Admin: 03/02/19 20:22 Dose: 650 mg Aspirin (Aspirin) 162 mg PO DAILY [facility] Nitroglycerin/Dextrose (Nitroglycerin 25 Mg/D5w 250 Ml) 25 mg in 250 mls @ 6 mls/hr IV TITRATE SAVITA; Protocol Last Titration: 03/02/19 22:00 Dose: 0 mcg/min, 0 mls/hr Sodium Chloride (Normal Saline) 1,000 mls @ 75 mls/hr IV ASDIRECTED SAVITA Last Admin: 03/03/19 05:40 Dose: 75 mls/hr Lisinopril (Prinivil) 20 mg PO DAILY [facility] Morphine Sulfate (Morphine) 2 mg IVPUSH Q1H PRN PRN Reason: Moderate to severe pain Ondansetron HCl (Zofran) 4 mg IVPUSH Q6H PRN PRN Reason: Nausea/Vomiting Sodium Chloride (Saline Flush) 10 ml FLUSH ASDIRECTED PRN PRN Reason: Keep Vein Open Last Admin: 03/02/19 16:00 Dose: 10 ml Discontinued Medications Aspirin (Aspirin) 324 mg PO ONETIME ONE Stop: 03/02/19 16:30 Last Admin: 03/02/19 15:58 Dose: 324 mg Lisinopril (Prinivil) 20 mg PO ONETIME ONE Stop: 03/03/19 17:48 Lisinopril (Prinivil) 20 mg PO ONETIME ONE Stop: 03/02/19 17:48 Last Admin: 03/02/19 18:00 Dose: 20 mg Lisinopril (Prinivil) Confirm Administered Dose 20 mg .ROUTE .STK-MED ONE Stop: 03/02/19 17:56 Last Admin: 03/02/19 18:01 Dose: Not Given Morphine Sulfate (Morphine) 4 mg IVPUSH ONETIME ONE Stop: 03/02/19 16:54 Last Admin: 03/02/19 17:04 Dose: 4 mg Morphine Sulfate (Morphine) Confirm Administered Dose 4 mg .ROUTE .STK-MED ONE Stop: 03/02/19 16:57 Last Admin: 03/02/19 17:05 Dose: Not Given Ondansetron HCl (Zofran) 4 mg IVPUSH ONETIME ONE Stop: 03/02/19 16:53 Last Admin: 03/02/19 17:02 Dose: 4 mg
[2019-03-03 08:28] VITALS: BP 132/86
[2019-03-03] MEDS ORDERED: Lisinopril 20 MG Tab PO SCH (09:00)
[2019-03-03] MEDS ORDERED: Aspirin 81 MG Tab.Chew PO SCH (09:00)
--- NOTE | 2019-03-03 09:28 | CR ---
INDICATION: Chest pain. CHEST: Portable AP upright view of the chest, 03/02/19, was compared with 06/13 and revealed an appearance of increased heart size, compared with the previous study. The pulmonary vasculature in the upper lung horne is more prominent, compatible with CHF. Somewhat prominent interstitial markings raise question of minimal interstitial lung edema but may simply represent fibrosis. No consolidating pneumonia or effusion was seen. Overlying EKG leads are noted. The aorta is tortuous. IMPRESSION: ASHD, cardiomegaly, probable mild CHF, possible minimal interstitial lung edema versus fibrosis. MTDD
[2019-03-03] MEDS ORDERED: Lisinopril 20 MG Tab PO ONE (17:47)
== END 2019-03-03 09:30 | disposition home or self-care (01) | DRG 305 ==
LOC: FB.ED 15:26 → FB.ICU 18:15
PROVIDERS: ADMIT Family Medicine; ATTEND Family Medicine
DX: I16.0 Hypertensive urgency (principal); Z68.41 Body mass index [BMI] 40.0-44.9, adult; F17.210 Nicotine dependence, cigarettes, uncomplicated; T46.4X6A Underdosing of angiotensin-converting-enzyme inhibitors, initial encounter; Z91.128 Patient's intentional underdosing of medication regimen for other reason; Y92.009 Unspecified place in unspecified non-institutional (private) residence as the place of occurrence of the external cause; R07.9 Chest pain, unspecified; M79.605 Pain in left leg; M79.604 Pain in right leg; G47.30 Sleep apnea, unspecified; G47.34 Idiopathic sleep related nonobstructive alveolar hypoventilation; K21.9 Gastro-esophageal reflux disease without esophagitis; M54.9 Dorsalgia, unspecified; G89.29 Other chronic pain; Z87.442 Personal history of urinary calculi; M19.90 Unspecified osteoarthritis, unspecified site; F32.9 Major depressive disorder, single episode, unspecified; F41.9 Anxiety disorder, unspecified; L40.9 Psoriasis, unspecified; E66.9 Obesity, unspecified; Z88.8 Allergy status to other drugs, medicaments and biological substances
CPT/HCPCS: 36415; 71045; 80048; 80053; 81001; 83735; 83880; 84484; 85025; 85379; 85610; 85730; 93005; 96365; 96366; 96375; 99285-25; A9270-GY; J2270; J2405; J3490; J7030